=== PATIENT | male | born 1990 | race Caucasian/White ===

== ENCOUNTER 2024-01-11 09:12 | Emergency (ER) | payer OTHER, SELFPAY ==
[2024-01-11 09:15] VITALS: BP 168/72; PULSE 84; RESP 19; TEMP 36.9; O2SAT 98; BMI 23.6
--- NOTE | 2024-01-11 09:30 | XR_ITS ---
Examination: Wrist, right 3 views Technique: Wrist AP, oblique, lateral 3 views Date and time of exam: January 11, 2024 0932 hours INDICATIONS: Lifting injury to the wrist one week ago wrist pain FINDINGS: No acute fracture On the lateral view the distal ulna is dorsally positioned No foreign body IMPRESSION: No acute fracture On the lateral view the distal ulna is abnormally dorsally positioned, recommend follow-up true lateral view of the wrist to exclude dorsal dislocation of the distal ulna
--- NOTE | 2024-01-11 09:50 | EDNOTE_ITS ---
Upper Extremity Injury RME/HPI General Chief Complaint: Hand/Wrist Problems Stated Complaint: RIGHT WRIST INJURY X 1 WK Time Seen by Provider: 01/11/24 09:20 Source: patient Arrival date/time: 01/11/24 09:12 this is a 33-year-old male who presents to the emergency department with compl aints of acute right wrist pain. Patient states he was working out and accidentally sprained his wrist 1 week ago. States he was feeling much better however began to practice his violin and continued to have pain with movement. Patient is here requesting x-ray. Related Data Previous Rx's ?Medication ?Instructions ?Recorded naproxen 500 mg tablet (Naprosyn) 500 mg PO BID PRN pain #20 tabs 01/11/24 Allergies Allergy/AdvReac Type Severity Reaction Status Date / Time No Known Allergies Allergy Verified 01/11/24 09:13 Review of Systems Review of Systems Systems Reviewed: All systems reviewed, normal except as documented Narrative Review of Systems: Gen: No fever, no chills, no weight loss EYES: No discharge, no visual changes, no pain HEENT: No ear pain, no congestion, no sore throat PULM: No shortness of breath, no cough, no congestion CV: No chest pain, no dyspnea on exertion, no palpitations GI: No nausea, no vomiting, no diarrhea, no pain, no constipation : No frequency, no urgency,? no dysuria Musc/skel: wrist pain, no back pain Skin: No rash? Psyc: No hallucinations, no depression Heme/Lymph: No easy bleeding or bruising tendencies Neuro: No weakness, no headache ED Exam Narrative Physical exam: General: Sittiing in Exam table in no acute distress, answering questions a ppropriately HENT: normocephalic, atraumatic, EOMI, PERRLA, moist mucous membranes Chest: chest wall is nontender Cardiac: regular rate and rhythm, normal S1 and S2, no murmurs, rubs, or gallops, capillary refill ?2 seconds Pulmonary: clear to auscultation bilaterally, no wheezing, crackles, or rhonchi Abdominal: active bowel sounds, soft, nontender, nondistended Neuro: A&OX3, CN II-XII intact, sensation grossly intact bilaterally in UE and LE. Skin: no rashes, no ecchymosis Ext: Right wrist pain with movement. No swelling or erythema Course Quality Measures none Orders Category Date Time Status XR wrist comp RT min 3V Stat Exams 01/11/24 09:30 Completed Vital Signs Vital signs: Vital Signs Temperature 98.5 F 01/11/24 09:15 Pulse Rate 84 01/11/24 09:15 Respiratory Rate 19 01/11/24 09:15 Blood Pressure 168/72 H 01/11/24 09:15 Pulse Oximetry (%) 98 01/11/24 09:15 Oxygen Delivery Method Room Air 01/11/24 09:15 Extremity Injury Patient data External records reviewed:: [facility] previous records Clinical information provided by:: patient Social determinants that could affect healthcare access:: none Patient has the following chronic illnesses:: no How is presenting disease/condition affected by chronic disease/condition?: no chronic disease Evaluation data The following diagnostics were reviewed and interpreted by me:: radiology exam(s) Lab and/or radiology exams considered but not ordered:: no Interpretation Summary: Examination: Wrist, right 3 views Technique: Wrist AP, oblique, lateral 3 views Date and time of exam: January 11, 2024 0932 hours INDICATIONS: Lifting injury to the wrist one week ago wrist pain FINDINGS: No acute fracture On the lateral view the distal ulna is dorsally positioned No foreign body IMPRESSION: No acute fracture On the lateral view the distal ulna is abnormally dorsally positioned, recommend follow-up true lateral view of the wrist to exclude dorsal dislocation of the distal ulna Medications / Prescriptions Medications or Prescriptions considered but not ordered:: no Medication administrations:: no Consultations Consultation(s) initiated? (list below): No Diagnosis Upper Extremity Injury Differential Diagnosis: sprain and strain of wrist and fracture of wrist Most likely diagnosis given after review of the tests above:: Sprain wrist right Admission Indicated Admission indicated?: not indicated Admission Request Was there a request for admission?: No Disposition Plan Disposition Plan: Discharge Discharge Attestation Discharge Attestation: The patient and all family members were given an opportunity to ask questions and understood the discharge instructions. Discharge instructions specifically effects, indications for sooner follow up or return to the emergency department, and the expected course of current diagnosis. Patient condition: Stable Discharge Plan Plan Patient Disposition: HOME (Self Care) Patient condition on transfer: Stable Prescriptions/Referrals Prescriptions/Med Rec: New naproxen [Naprosyn] 500 mg tablet 500 mg PO BID PRN (Reason: pain) Qty: 20 0RF Referrals: No Primary/Family,Physician [Primary Care Provider] - In 1 week Problem List Clinical Impression: Sprain and strain of wrist Patient/Caregiver Discharge Instructions Discharge Activity: activity as tolerated Education Materials: ED Wrist Splint, Velcro Additional Instructions: your x-ray does not demonstrate any fractures. Your pain is most likely caused by a sprain. You can use a Velcro splint, to assist in pain and mobility. Please refrain from heavy lifting for a couple weeks follow-up with your provider return to the emergency department with any worsening symptoms change in condition. Print Language: Turkish Stand Alone Forms: Nancy Award Info., Patient Portal Info Letter PA/PIGGYBACK CLERK Supervising Physician PA/THOM Supervising Physician: Dr Razo
== END 2024-01-11 10:46 | disposition home or self-care (01) ==
PROVIDERS: Emergency Provider Emergency Medicine
DX: S63.501A Unspecified sprain of right wrist, initial encounter (principal); S66.911A Strain of unspecified muscle, fascia and tendon at wrist and hand level, right hand, initial encounter; X50.9XXA Other and unspecified overexertion or strenuous movements or postures, initial encounter; Y93.B9 Activity, other involving muscle strengthening exercises
CPT/HCPCS: 73110; 99283